=== PATIENT | female | born 1960 | race Caucasian/White ===

== ENCOUNTER 2022-06-26 12:50 | Day surgery (SDC) | payer OTHER, SELFPAY ==
[2022-06-24 10:00] VITALS: BMI 33.5
--- NOTE | 2022-06-25 12:56 | P.CONAN_ITS ---
Documented by User: Hyacinth Escoto NP 06/25/22 12:56 HPI - Anesthesia Eval Consult details Narrative: 62yo F for Left Eye Lateral Muscle Recession PCP cleared [facility] Past Medical History Medical History GERD (gastroesophageal reflux disease) Surgical History Surgical History Hx of colonoscopy Hx of wisdom tooth extraction Social History Social History Are you a primary memory care program director to a significant other at home: No Do you presently have visiting nurse or other home services: No Patient Tobacco Use Status: Never used Tobacco Use of substances other than those prescribed or required for medical reasons: No Have you been hit, kicked, punched, or otherwise hurt by someone within the past year? If so, by whom?: No Are you DNR?: No Advance Directives: No Advance Directives Information Provided: Yes Advance Directives on File: No Recently lost weight without trying: No Nutrition Risks: No Nutritional Risk Poor oral hygiene: No (upper partial) Meds Allergies Allergy/AdvReac Type Severity Reaction Status Date / Time adhesive tape Allergy Intermediate Redness of Verified 06/24/22 09:57 Skin, irritation some tapes latex Allergy Intermediate Rash Verified 06/24/22 09:57 Home Medications Medication Instructions Recorded Confirmed Last Taken Type Calcium And Magnesium 06/24/22 06/24/22 Unknown History cholecalciferol (vitamin D3) 25 25 mcg PO DAILY 06/24/22 06/24/22 Unknown History mcg (1,000 unit) capsule (Vitamin D3) multivitamin 1 tab PO DAILY 06/24/22 06/24/22 Unknown History Exam Exam Date and Time: June 25, 2022 1256 Height,Weight and Vital Signs: Height 5 ft 4 in Weight 88.451 kg Assessment and Plan Assessment Anesthesia Assessment: Chart Reviewed Documented by User: Sherri Gilliland MD 06/26/22 14:00 PMF Past Medical History Medical History GERD (gastroesophageal reflux disease) Surgical History Surgical History Hx of colonoscopy Hx of wisdom tooth extraction History of Problems with Anesthesia: No Social History Social History Are you a primary memory care program director to a significant other at home: No Do you presently have visiting nurse or other home services: No Patient Tobacco Use Status: Never used Tobacco Use of substances other than those prescribed or required for medical reasons: No Have you been hit, kicked, punched, or otherwise hurt by someone within the past year? If so, by whom?: No Are you DNR?: No Advance Directives: No Advance Directives Information Provided: Yes Advance Directives on File: No Recently lost weight without trying: No Nutrition Risks: No Nutritional Risk Poor oral hygiene: No (upper partial) Meds Allergies Allergy/AdvReac Type Severity Reaction Status Date / Time adhesive tape Allergy Intermediate Redness of Verified 06/24/22 09:57 Skin, irritation some tapes latex Allergy Intermediate Rash Verified 06/24/22 09:57 Home Medications Medication Instructions Recorded Confirmed Last Taken Type Calcium And Magnesium 06/24/22 06/24/22 Unknown History cholecalciferol (vitamin D3) 25 25 mcg PO DAILY 06/24/22 06/24/22 Unknown Hi story mcg (1,000 unit) capsule (Vitamin D3) multivitamin 1 tab PO DAILY 06/24/22 06/24/22 Unknown History Exam Airway Mallampati Class: II TM Dist: >3cm Neck ROM: Full Loose/Missing/Broken Teeth: No Heart: RRR Lungs: CTA Assessment and Plan Assessment Anesthesia Assessment: Anesthesia Plan Discussed Final Anesthetic Review History of Problems with Anesthesia: No NPO: Yes ASA Class: II Final Preanesthetic Review: Meds/Allgs Chart Reviewed, Consent Obtained/Reviewed and Anes Risks/Benef Reviewed Patient Risk: Low Procedure Risk: Low Anesthetic Plan Anesthetic Plan: GA Disposition: Standard PACU
[2022-06-26] VITALS (7 sets, daily range): BP systolic 128–153; BP diastolic 64–92; PULSE 65–78; RESP 18; TEMP 36.1–36.2; O2SAT 97–99; BMI 36.0
[2022-06-26] MEDS: Lactated Ringers 1,000 ML 100 ML IVCONT (13:48)
[2022-06-26] MEDS: Acetaminophen 325 MG TABLET 650 MG PO (14:10)
--- NOTE | 2022-06-26 15:07 | HO.OPHTHAL ---
Ophthalmology Operative Note Date of Service: 06/26/22 Narrative: Diagnosis esotropia. Procedure left lateral rectus resection of [address] Oliveros. Anesthesia general. Complications none. The patient was brought to the operating room placed under general anesthesia. The patient's left eye was prepped and draped in the usual sterile ophthalmic fashion. A lid speculum was placed in the left eye and a peritomy was created around the lateral rectus muscle. The muscle was then hooked and dissected free of its overlying fascial attachments. It was secured at its insertion with a Delvin muscle clamp and a 7 mm resection was marked off with cautery. The resection point was secured with a double-armed Vicryl suture and the distal muscle resected. The resection point was then drawn forward to the original insertion using the Vicryl suture. Conjunctiva was closed with interrupted Vicryl sutures. The patient was then awoken from general anesthesia and discharged to postoperative recovery in good condition.
== END 2022-06-26 15:39 | disposition home or self-care (01) ==
PROVIDERS: PCP Family Medicine; Visit Provider Ophthalmology
PROC: (CPT 67311; principal; 2022-06-26 14:30)
DX: H53.2 Diplopia (principal); H50.9 Unspecified strabismus; K21.9 Gastro-esophageal reflux disease without esophagitis; Z91.040 Latex allergy status
CPT/HCPCS: 67311; J1100; J2250; J2405; J3010